=== PATIENT | male | born 2000 | race African-American/Black ===

== ENCOUNTER 2023-10-08 11:58 | Emergency (ER) | payer OTHER ==
[~2023-10-08] VITALS: Ht 177.8 cm; Wt 81.0 kg
[2023-10-08 13:37] LABS: COVID AG,FIA SOURCE NASAL SWAB
[2023-10-08 13:39] LABS: BASOPHILS % (AUTO) 0.6 % (0.0-2.0); EOSINOPHILS % (AUTO) 0.4 % (1.0-6.0); HEMATOCRIT 49.3 % (41-53); HEMOGLOBIN 16.7 g/dL (13.5-17.5); LYMPHOCYTES # (AUTO) 1.7 K/uL (1.0-4.8); LYMPHOCYTES % (AUTO) 15.1 % (22.0-44.0); MEAN CORPUSCULAR HGB CONC 33.9 G/dL (31.0-37.0); MEAN CORPUSCULAR VOLUME 86 fL (80-100); MONOCYTES # (AUTO) 0.8 K/uL (0.1-1.0); MONOCYTES % (AUTO) 7.3 % (2.0-9.0); NEUTROPHILS # (AUTO) 8.5 K/uL (1.8-7.7); NEUTROPHILS % (AUTO) 76.6 % (40.0-70.0); PLATELET COUNT (AUTO) 249 K/uL (150-450); RED BLOOD CELL COUNT(AUTO) 5.77 MIL/uL (4.50-5.90); RED CELL DISTRIBUTION WIDTH 12.9 % (11.5-14.5); WHITE BLOOD COUNT (AUTO) 11.1 K/uL (4.5-11.0)
[2023-10-08 13:57] LABS: ANION GAP 11 mmol/L (8-16); CARBON DIOXIDE 24 mmol/L (22-29); CHLORIDE 101 mmol/L (98-107); CREATININE 1.18 mg/dL (0.60-1.30); GLOMERULAR FILTR. RATE CALC > 60 mL/min (>60); GLUCOSE,RANDOM 94 mg/dL (70-110); POTASSIUM 3.9 mmol/L (3.5-5.1); SODIUM SERUM 136 mmol/L (136-145); UREA NITROGEN, BLOOD 11 mg/dL (7-18)
[2023-10-08 13:58] LABS: SARS-COV2 (COVID) ANTIGEN,FIA Negative (Negative)
[2023-10-08 14:05] LABS: ALCOHOL, BLOOD (SERUM) < 3 mg/dL (0-10)
[2023-10-08] MEDS ORDERED: LORazepam 2 MG TABLET PO PRN (17:30)
[2023-10-08] MEDS ORDERED: HALOPERIDOL 5 MG TABLET PO PRN (17:30)
[2023-10-08] MEDS ORDERED: ZOLPIDEM TARTRATE 10 MG TABLET PO PRN (17:30)
[2023-10-09 00:52] VITALS: BP 126/74; PULSE 81; RESP 16; TEMP 98.5
[2023-10-09] MEDS: LORazepam 2 MG/ML VIAL IM ONE (01:49)
[2023-10-09] MEDS: DiphenhydrAMINE HCL 50 MG/ML VIAL IM ONE (01:49)
[2023-10-09] MEDS: HALOPERIDOL LACTATE 5 MG/ML VIAL IM ONE (01:49)
== END 2023-10-09 04:04 | disposition admitted as inpatient to this hospital (09) ==
LOC: EMS 12:00
DX: F25.0 Schizoaffective disorder, bipolar type (principal); Z20.822 Contact with and (suspected) exposure to COVID-19
CPT/HCPCS: 99285; 87426; 80048; 85025; 36415; 96372; G0480; J1200; J1630; J2060

== ENCOUNTER 2023-12-04 11:15 | Inpatient (IN) | payer OTHER ==
[~2023-12-04] VITALS: Ht 175.3 cm; Wt 91.6 kg
[2023-12-04] MEDS: LORazepam 2 MG/ML VIAL IM ONE (12:30)
[2023-12-04] MEDS: HALOPERIDOL LACTATE 5 MG/ML VIAL IM ONE (12:34)
[2023-12-04] MEDS: DiphenhydrAMINE HCL 50 MG/ML VIAL IM ONE (12:34)
[2023-12-04 13:38] LABS: BASOPHILS % (AUTO) 0.5 % (0.0-2.0); EOSINOPHILS % (AUTO) 0.4 % (1.0-6.0); HEMATOCRIT 46.7 % (41-53); HEMOGLOBIN 15.8 g/dL (13.5-17.5); LYMPHOCYTES % (AUTO) 20.3 % (22.0-44.0); MEAN CORPUSCULAR HEMOGLOBIN 29.4 pg (26.0-34.0); MEAN CORPUSCULAR HGB CONC 33.9 G/dL (31.0-37.0); MEAN CORPUSCULAR VOLUME 87 fL (80-100); MONOCYTES # (AUTO) 0.7 K/uL (0.1-1.0); MONOCYTES % (AUTO) 7.3 % (2.0-9.0); NEUTROPHILS % (AUTO) 71.5 % (40.0-70.0); PLATELET COUNT (AUTO) 253 K/uL (150-450); RED BLOOD CELL COUNT(AUTO) 5.39 MIL/uL (4.50-5.90); RED CELL DISTRIBUTION WIDTH 13.2 % (11.5-14.5); WHITE BLOOD COUNT (AUTO) 9.7 K/uL (4.5-11.0)
[2023-12-04 13:40] LABS: COVID AG,FIA SOURCE NASAL SWAB
[2023-12-04 13:46] LABS: ANION GAP 8 mmol/L (8-16); CALCIUM, TOTAL 8.9 mg/dL (8.8-10.5); CARBON DIOXIDE 29 mmol/L (22-29); CHLORIDE 102 mmol/L (98-107); CREATININE 1.03 mg/dL (0.60-1.30); GLOMERULAR FILTR. RATE CALC > 60 mL/min (>60); GLUCOSE,RANDOM 94 mg/dL (70-110); POTASSIUM 3.8 mmol/L (3.5-5.1); SODIUM SERUM 139 mmol/L (136-145); UREA NITROGEN, BLOOD 11 mg/dL (7-18)
[2023-12-04 13:53] LABS: ALCOHOL, BLOOD (SERUM) < 3 mg/dL (0-10)
[2023-12-04 13:57] LABS: SARS-COV2 (COVID) ANTIGEN,FIA Negative (Negative)
[2023-12-04] MEDS ORDERED: HALOPERIDOL 5 MG TABLET PO PRN (22:30)
[2023-12-04] MEDS ORDERED: ZOLPIDEM TARTRATE 10 MG TABLET PO PRN (22:30)
[2023-12-04] MEDS ORDERED: LORazepam 2 MG TABLET PO PRN (22:30)
[2023-12-05 08:55] VITALS: O2SAT 100
[2023-12-05 10:01] VITALS: BP 110/67; PULSE 95; RESP 18; TEMP 97.8; O2SAT 100
[2023-12-05] MEDS: INFLUENZA VIRUS VACCINE TVS (6MO+) 2024-25/PF 45 MCG/0.5 ML SYRINGE IM. ONE (11:15)
[2023-12-05] MEDS: LITHIUM CARBONATE 300 MG CAPSULE PO SCH (17:00)
[2023-12-05 20:17] VITALS: BP 116/70; PULSE 86; RESP 17; TEMP 98; O2SAT 98
[2023-12-05] MEDS: OLANZapine 10 MG TABLET PO SCH (21:00)
[2023-12-06] MEDS ORDERED: LORazepam 2 MG/ML VIAL ONE (02:47)
[2023-12-06] MEDS ORDERED: HALOPERIDOL LACTATE 5 MG/ML VIAL ONE (02:48)
[2023-12-06] MEDS ORDERED: DiphenhydrAMINE HCL 50 MG/ML VIAL ONE (02:48)
[2023-12-06] MEDS: DiphenhydrAMINE HCL 50 MG/ML VIAL IM ONE (02:58)
[2023-12-06] MEDS: LORazepam 2 MG/ML VIAL IM ONE (02:58)
[2023-12-06] MEDS: HALOPERIDOL LACTATE 5 MG/ML VIAL IM ONE (02:59)
[2023-12-06 10:36] VITALS: RESP 16
[2023-12-06] MEDS ORDERED: LOPERAMIDE HCL 2 MG CAPSULE PO PRN (16:45)
[2023-12-06] MEDS ORDERED: BENZOCAINE/MENTHOL LOZENGE PO PRN (16:45)
[2023-12-06] MEDS ORDERED: MAGNESIUM HYDROXIDE SUSPENSION 30 ML UDCUP PO PRN (16:45)
[2023-12-06] MEDS ORDERED: IBUPROFEN 600 MG TABLET PO PRN (16:45)
[2023-12-06] MEDS ORDERED: CloNIDine HCL 0.1 MG TABLET PO PRN (16:45)
[2023-12-06] MEDS ORDERED: OMEPRAZOLE 20 MG CAPSULE PO PRN (16:45)
[2023-12-06] MEDS ORDERED: PETROLATUM,WHITE 28 GM JELLY TP PRN (16:45)
[2023-12-06] MEDS ORDERED: BACITRACIN 28 GM OINTMENT TP PRN (16:45)
[2023-12-06] MEDS ORDERED: ONDANSETRON 4 MG TABLET PO PRN (16:45)
[2023-12-06] MEDS ORDERED: ACETAMINOPHEN 325 MG TABLET PO PRN (16:45)
[2023-12-06] MEDS ORDERED: ALBUTEROL SULFATE HFA 90 MCG/PUFF 8 GM INHALER IH PRN (16:45)
[2023-12-06] MEDS ORDERED: MAG HYDROX/ALUMINUM HYD/SIMETH ES 30 ML SUSPENSION UDCUP PO PRN (16:45)
[2023-12-06] MEDS ORDERED: DOCUSATE SODIUM 100 MG CAPSULE PO PRN (16:45)
[2023-12-06 20:19] VITALS: BP 122/73; PULSE 92; RESP 18; TEMP 98.5; O2SAT 97
[2023-12-07 08:48] VITALS: BP 110/64; PULSE 70; RESP 17; TEMP 97.1; O2SAT 99
[2023-12-07] MEDS ORDERED: LORazepam 2 MG/ML VIAL ONE (19:06)
[2023-12-07] MEDS ORDERED: HALOPERIDOL LACTATE 5 MG/ML VIAL ONE (19:06)
[2023-12-07] MEDS ORDERED: DiphenhydrAMINE HCL 50 MG/ML VIAL ONE (19:06)
[2023-12-07] MEDS: HALOPERIDOL LACTATE 5 MG/ML VIAL IM ONE (19:15)
[2023-12-07] MEDS: LORazepam 2 MG/ML VIAL IM ONE (19:15)
[2023-12-07] MEDS: DiphenhydrAMINE HCL 50 MG/ML VIAL IM ONE (19:15)
[2023-12-07 20:22] VITALS: RESP 16
[2023-12-08 08:11] VITALS: RESP 17
[2023-12-09 08:30] VITALS: RESP 18
[2023-12-09 20:10] VITALS: RESP 18
[2023-12-10 08:19] VITALS: RESP 17
[2023-12-10] MEDS ORDERED: HALOPERIDOL LACTATE 5 MG/ML VIAL ONE (13:05)
[2023-12-10] MEDS ORDERED: LORazepam 2 MG/ML VIAL ONE (13:05)
[2023-12-10] MEDS ORDERED: DiphenhydrAMINE HCL 50 MG/ML VIAL ONE (13:05)
[2023-12-10] MEDS: HALOPERIDOL LACTATE 5 MG/ML VIAL IM ONE (13:16)
[2023-12-10] MEDS: LORazepam 2 MG/ML VIAL IM ONE (13:16)
[2023-12-10] MEDS: DiphenhydrAMINE HCL 50 MG/ML VIAL IM ONE (13:16)
[2023-12-10 20:34] VITALS: RESP 17
[2023-12-11 12:55] VITALS: RESP 17
[2023-12-11 20:28] VITALS: RESP 20
[2023-12-12 09:05] VITALS: RESP 18
[2023-12-12 12:45] VITALS: RESP 20
[2023-12-13 10:18] VITALS: RESP 16
[2023-12-14 08:40] VITALS: BP 124/72; PULSE 90; RESP 18; TEMP 97.3; O2SAT 96
[2023-12-14] MEDS: LORazepam 2 MG/ML VIAL IM ONE (10:55)
[2023-12-14] MEDS: HALOPERIDOL LACTATE 5 MG/ML VIAL IM ONE (10:55)
[2023-12-14] MEDS: DiphenhydrAMINE HCL 50 MG/ML VIAL IM ONE (10:55)
[2023-12-14 21:37] VITALS: RESP 19
[2023-12-15 08:52] VITALS: RESP 16
[2023-12-16 08:55] VITALS: RESP 18
[2023-12-16] MEDS ORDERED: LORazepam 2 MG/ML VIAL ONE (13:06)
[2023-12-16] MEDS ORDERED: HALOPERIDOL LACTATE 5 MG/ML VIAL ONE (13:06)
[2023-12-16] MEDS ORDERED: DiphenhydrAMINE HCL 50 MG/ML VIAL ONE (13:06)
[2023-12-16] MEDS ORDERED: HALOPERIDOL LACTATE 5 MG/ML VIAL IM PRN (13:45)
[2023-12-16] MEDS: LORazepam 2 MG/ML VIAL IM ONE (13:59)
[2023-12-16] MEDS: DiphenhydrAMINE HCL 50 MG/ML VIAL IM ONE (14:00)
[2023-12-16] MEDS: HALOPERIDOL LACTATE 5 MG/ML VIAL IM ONE (14:00)
[2023-12-16] MEDS ORDERED: HALOPERIDOL 5 MG TABLET PO SCH (21:00)
== END 2023-12-16 17:53 | disposition home or self-care (01) | DRG 885 ==
LOC: EMS 11:15 → B3A 12-05 08:59
PROVIDERS: ADMIT Psychiatry & Neurology Psychiatry; ATTEND Psychiatry & Neurology Psychiatry
DX: F25.9 Schizoaffective disorder, unspecified (principal); R45.851 Suicidal ideations; F31.9 Bipolar disorder, unspecified; F41.9 Anxiety disorder, unspecified; G47.00 Insomnia, unspecified; K59.00 Constipation, unspecified; F17.200 Nicotine dependence, unspecified, uncomplicated; F94.0 Selective mutism; R45.850 Homicidal ideations
CPT/HCPCS: 80048; 85025; 99291; G0480; J1200; J1630; J2060